=== PATIENT | female | born 1940 | race Hispanic/Latino ===

== ENCOUNTER 2020-08-26 15:44 | Emergency (ER) | payer OTHER ==
[2020-08-26] MEDS ORDERED: MECLIZINE HCL 25 MG TABLET ONE (16:13)
[2020-08-26] MEDS ORDERED: NIFEDIPINE 10 MG CAP ONE (16:14)
[2020-08-26 16:43] LABS: BASOPHILS % (AUTO) 1.1 % (0.0-5.0); EOSINOPHILS % (AUTO) 0.8 % (0.0-8.0); HEMATOCRIT 38.3 % (36-48); LYMPHOCYTES % (AUTO) 31.4 % (21.0-51.0); MEAN CORPUSCULAR HEMOGLOBIN 30.4 pg (27.0-33.0); MEAN CORPUSCULAR HGB CONC 33.9 g/dL (32.0-36.0); MEAN CORPUSCULAR VOLUME 89.7 fL (79-99); MONOCYTES % (AUTO) 7.2 % (3.0-13.0); NEUTROPHILS % (AUTO) 59.3 % (40.0-77.0); PLATELET COUNT (AUTO) 249 K/uL (130-400); RED BLOOD CELL COUNT(AUTO) 4.27 MIL/uL (4.00-5.50); RED CELL DISTRIBUTION WIDTH 12.6 % (11.0-15.5); WHITE BLOOD COUNT (AUTO) 4.8 K/uL (4.8-10.8)
[2020-08-26 16:54] LABS: CREATININE 0.7 mg/dL (0.5-1.5); POTASSIUM 3.9 mmol/L (3.5-5.1)
[2020-08-26 16:55] LABS: INR 1.1 (0.85-1.15); PROTHROMBIN TIME 11.9 SEC (9.6-11.6)
[2020-08-26 16:56] LABS: PARTIAL THROMBOPLASTIN TIME 28.8 SEC (26.3-35.5)
[2020-08-26 16:59] LABS: APPEARANCE,URINE Clear (CLEAR); BILIRUBIN,URINE Negative (NEGATIVE); COLOR,URINE Yellow (YELLOW); GLUCOSE, URINE (UA) Negative (NEGATIVE); KETONES,URINE Negative (NEGATIVE); LEUKOCYTE ESTERASE ,URINE Small (NEGATIVE); NITRATE,URINE Negative (NEGATIVE); OCCULT BLOOD,URINE Negative (NEGATIVE); PH,URINE 7.5 (5.0-8.0); PROTEIN,URINE Negative (NEGATIVE); UROBILINOGEN,URINE 0.2 mg/dL (0.2-1.0)
[2020-08-26 16:59] LABS: ALBUMIN 4.4 g/dL (3.5-5.0); BILIRUBIN,TOTAL 0.7 mg/dL (0.2-1.0); TOTAL PROTEIN, SERUM 8.1 g/dL (6.0-8.3)
[2020-08-26 17:06] LABS: B-TYPE NATRIURETIC PEPTIDE 114 pg/mL (0-100)
[2020-08-26 17:18] LABS: BACTERIA,URINE Few /HPF (None Seen); MUCUS,URINE Rare LPF (None Seen); SQUAMOUS EPITHELIAL CELL,UR Moderate /HPF (0-2)
== END 2020-08-26 17:31 | disposition home or self-care (01) ==
LOC: EEVIPCON 15:44 → EDH 15:44
DX: R42 Dizziness and giddiness (principal); I10 Essential (primary) hypertension; E78.00 Pure hypercholesterolemia, unspecified; Z88.0 Allergy status to penicillin; Z88.1 Allergy status to other antibiotic agents
CPT/HCPCS: 36415; 70450; 71045; 80053; 81001; 82550; 83880; 84484; 85025; 85610; 85730; 93005

== ENCOUNTER 2020-10-09 16:37 | Observation (INO) | payer OTHER ==
[~2020-10-09] VITALS: Ht 160 cm; Wt 57.7 kg
[2020-10-09 18:41] LABS: BASOPHILS % (AUTO) 0.7 % (0.0-5.0); EOSINOPHILS % (AUTO) 0.7 % (0.0-8.0); HEMATOCRIT 31.6 % (36-48); LYMPHOCYTES % (AUTO) 28.9 % (21.0-51.0); MEAN CORPUSCULAR HGB CONC 34.8 g/dL (32.0-36.0); MONOCYTES % (AUTO) 12.3 % (3.0-13.0); NEUTROPHILS % (AUTO) 57.4 % (40.0-77.0); PLATELET COUNT (AUTO) 190 K/uL (130-400); RED BLOOD CELL COUNT(AUTO) 3.55 MIL/uL (4.00-5.50); RED CELL DISTRIBUTION WIDTH 12.4 % (11.0-15.5); WHITE BLOOD COUNT (AUTO) 4.4 K/uL (4.8-10.8)
[2020-10-09 18:52] LABS: CREATININE 0.6 mg/dL (0.5-1.5); POTASSIUM 4.1 mmol/L (3.5-5.1)
[2020-10-09 18:59] LABS: ALBUMIN 3.8 g/dL (3.5-5.0); BILIRUBIN,TOTAL 0.4 mg/dL (0.2-1.0); TOTAL PROTEIN, SERUM 6.9 g/dL (6.0-8.3)
[2020-10-09] MEDS ORDERED: LACTULOSE 20 GM/30 ML UDCUP PO PRN (21:15)
[2020-10-09] MEDS ORDERED: MORPHINE 2 MG SYG IV PRN (21:15)
[2020-10-09] MEDS ORDERED: DiphenhydrAMINE HCL 50 MG/ML VIAL IV PRN (21:15)
[2020-10-09] MEDS: ACYCLOVIR 500 MG VIAL 500 MG in 0.9%NACL 100ML 100 ML IV SCH (22:00)
[2020-10-09] MEDS: TRAMADOL HCL 50 MG TABLET PO SCH (22:00)
[2020-10-09] MEDS: PREDNISONE 20 MG TABLET PO SCH (22:00)
[2020-10-09] MEDS ORDERED: PREDNISONE 20 MG TABLET ONE (23:47)
[2020-10-09] MEDS ORDERED: PREDNISONE 10 MG TABLET ONE (23:47)
[2020-10-10] VITALS (8 sets, daily range): BP systolic 133–184; BP diastolic 49–105
[2020-10-10] MEDS: 0.9%NACL 1000ML 1,000 ML IV SCH ×2 (02:02→10:35)
[2020-10-10] MEDS ORDERED: ATOR40TA69 PO (02:42)
[2020-10-10] MEDS: TRAMADOL HCL 50 MG TABLET PO SCH ×4 (04:00→21:05)
[2020-10-10] MEDS ORDERED: GADODIAMIDE 10 MMOL/20 ML VIAL IV ONE (08:33)
[2020-10-10] MEDS ORDERED: ONDANSETRON 4MG INJ IVP PRN (09:00)
[2020-10-10] MEDS ORDERED: POTASSIUM CHLORIDE 20MEQ/100ML 100 ML IV PRN ×2 (09:00)
[2020-10-10] MEDS ORDERED: ACETAMINOPHEN 325 MG TAB PO PRN ×2 (09:00→17:45)
[2020-10-10] MEDS ORDERED: TEMAZEPAM 7.5 MG CAPSULE PO PRN (09:00)
[2020-10-10] MEDS ORDERED: GLUCAGON 1MG KIT 1 MG ML IM PRN (09:00)
[2020-10-10] MEDS ORDERED: ACETAMINOPHEN 650 MG SUPPOSITORY RC PRN (09:00)
[2020-10-10] MEDS ORDERED: LACTULOSE 20 GM/30 ML UDCUP PO PRN (09:00)
[2020-10-10] MEDS ORDERED: DEXTROSE 50%-WATER 50 ML DISP.SYRIN IV PRN (09:00)
[2020-10-10] MEDS ORDERED: POTASSIUM CHLORIDE 10% ELIXIR 20 MEQ/15 ML UDCUP PO PRN (09:00)
[2020-10-10] MEDS ORDERED: LIDOCAINE HCL-MPF 1% 2ML VIAL IV PRN ×2 (09:00)
[2020-10-10] MEDS ORDERED: LABETALOL 20MG SYG IV PRN (09:00)
[2020-10-10] MEDS: PREDNISONE 20 MG TABLET PO SCH (09:21)
[2020-10-10] MEDS: ACYCLOVIR 500 MG VIAL 500 MG in 0.9%NACL 100ML 100 ML IV SCH ×2 (09:21→17:02)
[2020-10-10] MEDS: FAMOTIDINE 20MG VIAL IV SCH ×2 (09:21→20:50)
[2020-10-10] MEDS: ENOXAPARIN SODIUM 40 MG/0.4 ML SYRINGE SQ SCH (09:22)
[2020-10-10] MEDS ORDERED: COMPOUND IV MISC 1 EACH IVSOLN MISC PRN (12:00)
[2020-10-10] MEDS: DOXYCYCLINE 100MG+NS 250ML 250 ML IV SCH ×2 (12:26→20:50)
[2020-10-11] MEDS: ACYCLOVIR 500 MG VIAL 500 MG in 0.9%NACL 100ML 100 ML IV SCH ×4 (03:14→22:03)
[2020-10-11] MEDS: 0.9%NACL 1000ML 1,000 ML IV SCH ×2 (03:15→14:56)
[2020-10-11] MEDS: TRAMADOL HCL 50 MG TABLET PO SCH (03:15)
[2020-10-11 04:42] VITALS: BP 169/61
[2020-10-11 08:00] VITALS: BP 150/68
[2020-10-11 08:32] LABS: APPEARANCE,URINE Clear (CLEAR); BILIRUBIN,URINE Negative (NEGATIVE); COLOR,URINE Yellow (YELLOW); GLUCOSE, URINE (UA) Negative (NEGATIVE); KETONES,URINE Negative (NEGATIVE); LEUKOCYTE ESTERASE ,URINE Trace (NEGATIVE); NITRATE,URINE Negative (NEGATIVE); OCCULT BLOOD,URINE Trace (NEGATIVE); PROTEIN,URINE POS 1+ mg/dL (NEGATIVE); UROBILINOGEN,URINE 0.2 mg/dL (0.2-1.0)
[2020-10-11 08:38] LABS: BACTERIA,URINE Rare /HPF (None Seen); RBC,URINE 0-1 /HPF (0-1); SQUAMOUS EPITHELIAL CELL,UR Few /HPF (0-2)
[2020-10-11 09:17] LABS: HEMATOCRIT 32.3 % (36-48); MEAN CORPUSCULAR VOLUME 88.5 fL (79-99); RED BLOOD CELL COUNT(AUTO) 3.65 MIL/uL (4.00-5.50); RED CELL DISTRIBUTION WIDTH 12.8 % (11.0-15.5); WHITE BLOOD COUNT (AUTO) 11.1 K/uL (4.8-10.8)
[2020-10-11 09:28] LABS: CREATININE 1.1 mg/dL (0.5-1.5); POTASSIUM 3.1 mmol/L (3.5-5.1)
[2020-10-11] MEDS: FAMOTIDINE 20MG VIAL IV SCH ×2 (09:58→22:02)
[2020-10-11] MEDS: DOXYCYCLINE 100MG+NS 250ML 250 ML IV SCH ×2 (09:59→22:02)
[2020-10-11] MEDS: PREDNISONE 20 MG TABLET PO SCH (09:59)
[2020-10-11] MEDS: ENOXAPARIN SODIUM 40 MG/0.4 ML SYRINGE SQ SCH (10:00)
[2020-10-11] MEDS ORDERED: TRAMADOL HCL 50 MG TABLET PO PRN (10:00)
[2020-10-11 12:00] VITALS: BP 156/69
[2020-10-11] MEDS: LISINOPRIL 10 MG TABLET PO SCH ×2 (12:19→21:00)
[2020-10-11] MEDS: AMITRIPTYLINE 25 MG TABLET PO SCH (12:19)
[2020-10-11] MEDS: HYDROCHLOROTHIAZIDE 25 MG TABLET PO SCH (12:20)
[2020-10-11] MEDS: KCL 20 MEQ ERTAB PO PRN ×3 (12:26→22:02)
[2020-10-11 16:00] VITALS: BP 128/70
[2020-10-11] MEDS ORDERED: BRIM5DRO OP (16:43)
[2020-10-11] MEDS ORDERED: LATA2.5D14 OP (16:43)
[2020-10-11] MEDS ORDERED: MECLIZINE HCL 25 MG TABLET PO PRN (20:30)
[2020-10-11 20:32] VITALS: BP 129/42
[2020-10-11] MEDS ORDERED: ATORVASTATIN 40 MG TABLET PO SCH (21:00)
[2020-10-11] MEDS: NEOMYCIN/POLYMYXIN/HC OTIC SUSP 10ML BOTTLE AD SCH (22:02)
[2020-10-11] MEDS: GABAPENTIN 100 MG CAPSULE PO SCH (22:05)
[2020-10-12 00:52] VITALS: BP 120/46
[2020-10-12 04:16] VITALS: BP 145/58
[2020-10-12 04:34] LABS: POTASSIUM 3.8 mmol/L (3.5-5.1)
[2020-10-12] MEDS: ACYCLOVIR 500 MG VIAL 500 MG in 0.9%NACL 100ML 100 ML IV SCH ×2 (06:09→13:30)
[2020-10-12] MEDS: 0.9%NACL 1000ML 1,000 ML IV SCH (06:10)
[2020-10-12 08:00] VITALS: BP 131/53
[2020-10-12] MEDS: DOXYCYCLINE 100MG+NS 250ML 250 ML IV SCH (09:03)
[2020-10-12] MEDS: ENOXAPARIN SODIUM 40 MG/0.4 ML SYRINGE SQ SCH (09:04)
[2020-10-12] MEDS: HYDROCHLOROTHIAZIDE 25 MG TABLET PO SCH (09:05)
[2020-10-12] MEDS: FAMOTIDINE 20MG VIAL IV SCH (09:05)
[2020-10-12] MEDS: GABAPENTIN 100 MG CAPSULE PO SCH (09:05)
[2020-10-12] MEDS: AMITRIPTYLINE 25 MG TABLET PO SCH (09:06)
[2020-10-12] MEDS: PREDNISONE 20 MG TABLET PO SCH (09:09)
[2020-10-12] MEDS: NEOMYCIN/POLYMYXIN/HC OTIC SUSP 10ML BOTTLE AD SCH (09:15)
[2020-10-12 12:00] VITALS: BP 150/60
[2020-10-12] MEDS: LISINOPRIL 10 MG TABLET PO SCH (12:39)
== END 2020-10-12 16:55 | disposition home or self-care (01) ==
LOC: EDH 16:37 → EDHIP 23:46 → 4AH 10-10 01:05
PROVIDERS: ADMIT Internal Medicine Critical Care Medicine; ATTEND Internal Medicine Critical Care Medicine
DX: B02.21 Postherpetic geniculate ganglionitis (principal); G51.0 Bell's palsy; E11.9 Type 2 diabetes mellitus without complications; H40.9 Unspecified glaucoma; R42 Dizziness and giddiness; E03.9 Hypothyroidism, unspecified; I10 Essential (primary) hypertension; E78.00 Pure hypercholesterolemia, unspecified; E78.5 Hyperlipidemia, unspecified; H91.90 Unspecified hearing loss, unspecified ear; E87.6 Hypokalemia; D72.829 Elevated white blood cell count, unspecified; H54.61 Unqualified visual loss, right eye, normal vision left eye; L03.211 Cellulitis of face; R29.810 Facial weakness; Z74.01 Bed confinement status; Z90.49 Acquired absence of other specified parts of digestive tract; Z79.899 Other long term (current) drug therapy; Z88.0 Allergy status to penicillin; Z88.1 Allergy status to other antibiotic agents
CPT/HCPCS: 36415 ×3; 70450; 70553; 80048 ×2; 80053; 81001; 85025; 85027; 92610; 93880; 96361 ×2; 96365; 96366 ×3; 96367; 96368; 96372 ×3; 96375 ×2; 96376 ×3; 97161; 97530; 99285; A9579; G0378 ×63; G8978; G8979; G8980; G8981; G8982; G8983; J0133 ×4; J1650 ×3; J2405; J3490 ×10; J7030; J7512

== ENCOUNTER 2022-10-15 16:24 | Emergency (ER) | payer OTHER ==
[~2022-10-15] VITALS: Ht 154.9 cm; Wt 55.3 kg
[~2022-10-15 16:24] MED LIST: ATOR40TA69 PO; BRIM5DRO OP; LATA2.5D14 OP
[2022-10-15 17:24] LABS: APPEARANCE,URINE CLEAR (CLEAR); BILIRUBIN,URINE NEGATIVE (NEGATIVE); COLOR,URINE LIGHT-YELLOW (YELLOW); GLUCOSE, URINE (UA) NEGATIVE (NEGATIVE); KETONES,URINE NEGATIVE (NEGATIVE); LEUKOCYTE ESTERASE ,URINE 500 Leu/uL (NEGATIVE); NITRATE,URINE NEGATIVE (NEGATIVE); PH,URINE 6.5 (5.0-8.0); PROTEIN,URINE 10 mg/dL (NEGATIVE)
[2022-10-15 17:29] LABS: BASOPHILS % (AUTO) 0.4 % (0.0-5.0); EOSINOPHILS % (AUTO) 0.7 % (0.0-8.0); HEMATOCRIT 33.5 % (36-48); LYMPHOCYTES % (AUTO) 17.6 % (21.0-51.0); MEAN CORPUSCULAR HEMOGLOBIN 30.3 pg (27.0-33.0); MEAN CORPUSCULAR HGB CONC 34.3 g/dL (32.0-36.0); MEAN CORPUSCULAR VOLUME 88.2 fL (79-99); MONOCYTES % (AUTO) 10.9 % (3.0-13.0); NEUTROPHILS % (AUTO) 70.2 % (40.0-77.0); PLATELET COUNT (AUTO) 245 K/uL (130-400); RED CELL DISTRIBUTION WIDTH 12.2 % (11.0-15.5); WHITE BLOOD COUNT (AUTO) 4.6 K/uL (4.8-10.8)
[2022-10-15 17:34] LABS: BACTERIA,URINE RARE /HPF (None Seen); MUCUS,URINE RARE LPF (None Seen); SQUAMOUS EPITHELIAL CELL,UR FEW /HPF (0-2)
[2022-10-15 17:38] LABS: CREATININE 0.6 mg/dL (0.5-1.5); POTASSIUM 3.7 mmol/L (3.5-5.1)
[2022-10-15 17:43] LABS: ALBUMIN 4.1 g/dL (3.5-5.0); TOTAL PROTEIN, SERUM 7.4 g/dL (6.0-8.3)
[2022-10-15] MEDS ORDERED: KETOROLAC 15MG/ML VIAL (15MG/ML) IV ONE (18:00)
[2022-10-15] MEDS ORDERED: NITROFURANTOIN MONOHYD/M-CRYST 100 MG CAPSULE PO ONE (18:00)
[2022-10-15] MEDS ORDERED: 0.9%NACL 1000ML 1,000 ML IV ONE (18:00)
[2022-10-15] MEDS ORDERED: 0.9% NACL 500ML IV.SOLN 500 ML IV ONE (19:00)
[2022-10-15] MEDS ORDERED: ACETAMINOPHEN 500 MG TABLET PO ONE (19:00)
[2022-10-15 20:58] VITALS: BP 119/74
[2022-10-15] MEDS ORDERED: MACR100 PO (21:35)
== END 2022-10-15 21:51 | disposition home or self-care (01) ==
LOC: EDH 16:24
DX: N39.0 Urinary tract infection, site not specified (principal); M54.9 Dorsalgia, unspecified; E78.00 Pure hypercholesterolemia, unspecified; Z79.899 Other long term (current) drug therapy; Z98.890 Other specified postprocedural states; Z88.0 Allergy status to penicillin; Z88.1 Allergy status to other antibiotic agents
CPT/HCPCS: 99285; 71250; 96374; 96361; 80053; 85025; 87088; 81001; 36415; 74176; J7040; J7030; J1885